=== PATIENT | male | born 1990 | race Caucasian/White ===

== ENCOUNTER → 2018-09-23 | Outpatient (CLI) | payer OTHER ==
--- NOTE | 2018-09-23 15:07 | US ---
EXAMINATION TYPE: US abdomen complete DATE OF EXAM: 09/23/2018 COMPARISON: NONE CLINICAL HISTORY: K76.0 Non alcoholic fatty liver disease. Pt states recent abnormal/elevated labs EXAM MEASUREMENTS: Liver Length: 17.5 cm Gallbladder Wall: 0.2 cm CBD: 0.4 cm Spleen: 11.2 cm Right Kidney: 11.4 x 5.0 x 4.7 cm Left Kidney: 10.9 x 5.7 x 5.8 cm Pancreas: wnl, tail obscured by overlying bowel gas Liver: Heterogeneous, probable fatty sparing near GB Gallbladder: wnl Evidence for sonographic Willams's sign: No CBD: wnl Spleen: Appeared heterogeneous Right Kidney: wnl Left Kidney: wnl Upper IVC: wnl Abd Aorta: wnl IMPRESSION: 1. Mild fatty infiltration liver with mild hepatomegaly
== END | disposition home or self-care (01) ==
LOC: RADUSWWP 07:23
PROVIDERS: ATTEND Internal Medicine
DX: K76.0 Fatty (change of) liver, not elsewhere classified (principal)
CPT/HCPCS: 76700

== ENCOUNTER 2019-10-01 16:34 | Emergency (ER) | payer OTHER ==
[2019-10-01] MEDS ORDERED: KETOROLAC 30 MG/ML 1 ML VIAL IVP STA (17:36)
[2019-10-01 17:55] LABS: Basophils # (A) 0.1 k/uL (0-0.2); Basophils % (A) 2 %; Eosinophils # (A) 0.2 k/uL (0-0.7); Eosinophils % (A) 3 %; HCT 44.6 % (39.0-53.0); Lymphocytes # (A) 1.6 k/uL (1.0-4.8); Lymphocytes % (A) 19 %; MCH 29.5 pg (25.0-35.0); MCHC 33.6 g/dL (31.0-37.0); MCV 87.8 fL (80.0-100.0); Mean Platelet Volume 7.3; Monocytes # (A) 0.5 k/uL (0-1.0); Monocytes % (A) 6 %; Neutrophils % (A) 70 %; Platelet Count 391 k/uL (150-450); RBC 5.09 m/uL (4.30-5.90); RDW 12.6 % (11.5-15.5); WBC 8.6 k/uL (3.8-10.6)
--- NOTE | 2019-10-01 18:01 | ED ---
Chest Pain HPI - General Chief Complaint: Chest Pain Stated Complaint: Chest pain Time Seen by Provider: 10/01/19 16:50 Source: patient Mode of arrival: ambulatory Limitations: no limitations - History of Present Illness Initial Comments: The patient is a 28 year old male with past history of hypertension and hyperlipidemia who presents emergency room with reported chest pain. He states the pain started earlier this morning. It is described as a sharp shooting sensation on the left side of his chest which is worse with inspiration. He denies a history of DVT or PE. No family history of blood clotting disorder. No recent travel. Does admit to left calf pain which hurt 3 days ago and then improved. Denies any calf swelling. No fevers or chills. Denies a cough or hemoptysis. Denies a family history of early cardiac disease. No associated nausea, vomiting or diaphoresis. No ripping or tearing sensation to his back. No history of IV drug use. He denies any unilateral numbness or weakness. There are no other alleviating, precipitating or modifying factors - Related Data Allergies Allergy/AdvReac Type Severity Reaction Status Date / Time No Known Allergies Allergy Verified 10/01/19 16:54 Review of Systems ROS Statement: Those systems with pertinent positive or pertinent negative responses have been documented in the HPI. ROS Other: All systems not noted in ROS Statement are negative. EKG Findings - EKG Comments: EKG Findings:: EKG demonstrates a normal sinus rhythm with ventricular rate 73. SD interval 192. QRS 90. QTC of 31. There are no acute ST segment elevations or depressions concerning for ischemic changes. Q waves in lead 3. Past Medical History Past Medical History: Hypertension History of Any Multi-Drug Resistant Organisms: None Reported Additional Past Surgical History / Comment(s): nasal surgery Past Psychological History: No Psychological Hx Reported Smoking Status: Never smoker Past Alcohol Use History: Occasional Past Drug Use History: None Reported General Exam Limitations: no limitations General appearance: alert, in no apparent distress Head exam: Present: atraumatic, normocephalic, normal inspection Eye exam: Present: normal appearance, PERRL, EOMI. Absent: scleral icterus, conjunctival injection, periorbital swelling ENT exam: Present: normal exam, mucous membranes moist Neck exam: Present: normal inspection. Absent: tenderness, meningismus, lymphadenopathy Respiratory exam: Present: normal lung sounds bilaterally. Absent: respiratory distress, wheezes, rales, rhonchi, stridor Cardiovascular Exam: Present: regular rate, normal rhythm, normal heart sounds. Absent: systolic murmur, diastolic murmur, rubs, gallop, clicks GI/Abdominal exam: Present: soft, normal bowel sounds. Absent: distended, tenderness, guarding, rebound, rigid Extremities exam: Present: normal inspection, full ROM, normal capillary refill. Absent: tenderness, pedal edema, joint swelling, calf tenderness Back exam: Present: normal inspection Neurological exam: Present: alert, oriented X3, CN II-XII intact Psychiatric exam: Present: normal affect, normal mood Skin exam: Present: warm, dry, intact, normal color. Absent: rash Course Vital Signs 10/01/19 10/01/19 10/01/19 16:52 18:56 20:28 Temperature 98.1 F 98.2 F Pulse Rate 90 78 81 Respiratory 18 16 18 Rate Blood Pressure 151/91 129/76 139/88 O2 Sat by Pulse 99 96 97 Oximetry Chest Pain MDM - MDM Upon arrival the patient was placed into room 11. A thorough history and physic al exam was performed. Peripheral IV was established. The patient was given 15 g of Toradol IV. A 12-lead EKG was performed. Laboratory studies were conducted which were essentially unremarkable. D-dimer is 0.25 troponin was less than 0.015. C-reactive protein less than 5 and sed rate is 6. Chest x-ray demonstrates no acute intrathoracic process. I also performed a venous Doppler of the patient's left lower extremity which demonstrates no DVT. I did perform a bedside cardiac ultrasound on the patient which demonstrated no pericardial effusion or cardiac tamponade. I did discuss the diagnosis, differential and treatment options. At this time. The patient will be discharged home. He is instructed to take Motrin 600 every 8 hours for possible pleurisy. He needs to follow up with primary care doctor in 2-4 days. I did recommend an echo monitoring. The patient has any new or worsening symptoms he should return to the emergency room. The patient was discharged in stable condition Disposition Clinical Impression: Chest pain Disposition: HOME SELF-CARE Condition: Stable Instructions (If sedation given, give patient instructions): Chest Pain (ED) Additional Instructions: Please follow up with the primary care doctor in 2-4 days. I do recommend a Holter monitor and echo of her heart. Return to the emergency room for any new or worsening symptoms Is patient prescribed a controlled substance at d/c from ED?: No Referrals: Anupam Thorne MD [Primary Care Provider] - 1-2 days Francisco Paredes MD [STAFF PHYSICIAN] - 1-2 days Time of Disposition: 20:04
[2019-10-01 18:09] LABS: ALT 54 U/L (4-49); AST 45 U/L (17-59); African American GFR (CKD) >90 (>60 ml/min/1.73 sqM); Albumin 4.6 g/dL (3.5-5.0); Alkaline Phosphatase 36 U/L (38-126); Anion Gap 9 mmol/L; Blood Urea Nitrogen 15 mg/dL (9-20); Calcium 9.5 mg/dL (8.4-10.2); Carbon Dioxide 24 mmol/L (22-30); Chloride 108 mmol/L (98-107); Glucose 115 mg/dL (74-99); Non-African American GFR(CKD) >90 (>60 ml/min/1.73 sqM); Potassium 4.5 mmol/L (3.5-5.1); Sodium 141 mmol/L (137-145); Total Bilirubin 0.5 mg/dL (0.2-1.3); Total Protein 7.9 g/dL (6.3-8.2)
[2019-10-01 18:11] LABS: C Reactive Protein <5.0 mg/L (<10.0)
--- NOTE | 2019-10-01 18:16 | XR ---
EXAMINATION TYPE: XR chest 2V DATE OF EXAM: 10/01/2019 COMPARISON: NONE HISTORY: Chest pain TECHNIQUE: 2 views FINDINGS: Heart and mediastinum are normal. Lungs are clear. Diaphragm is normal. Bony thorax appears normal. IMPRESSION: Normal chest.
[2019-10-01 18:23] LABS: D-Dimer 0.25 mg/L FEU (<0.60); Partial Thromboplastin Time 22.1 sec (22.0-30.0); Prothrombin Time 10.1 sec (9.0-12.0)
--- NOTE | 2019-10-01 19:00 | US ---
EXAMINATION TYPE: US venous doppler duplex LE LT DATE OF EXAM: 10/01/2019 6:51 PM COMPARISON: NONE CLINICAL HISTORY: pain. Chest pain SIDE PERFORMED: Left TECHNIQUE: The lower extremity deep venous system is examined utilizing real time linear array sonog rain with graded compression, doppler sonography and color-flow sonography. VESSELS IMAGED: External Iliac Vein (EIV) Common Femoral Vein Deep Femoral Vein Greater Saphenous Vein * Femoral Vein Popliteal Vein Small Saphenous Vein * Proximal Calf Veins (* superficial vessels Left Leg: Negative for DVT IMPRESSION: Normal exam. No evidence of deep venous thrombosis in the left leg.
[2019-10-01 20:30] VITALS: BP 139/88; PULSE 81; RESP 18; TEMP 98.2
== END 2019-10-01 20:30 | disposition home or self-care (01) ==
LOC: EC 16:34
DX: R07.1 Chest pain on breathing (principal); M79.662 Pain in left lower leg
CPT/HCPCS: 99284; 96374; 36415; 93005; 85379; 80053; 85652; 83690; 83735; 84484; 85025; 85610; 85730; 86140; 71046; 93971; J1885

== ENCOUNTER 2022-12-19 01:29 | Emergency (ER) | payer BC, OTHER ==
[2022-12-19 01:33] VITALS: TEMP 97.6
[2022-12-19 01:56] VITALS: BP 145/92; PULSE 55; RESP 16
[2022-12-19 02:09] LABS: Basophils % (A) 0 %; Eosinophils # (A) 0.3 k/uL (0-0.7); Eosinophils % (A) 4 %; HCT 41.6 % (39.0-53.0); HGB 15.3 gm/dL (13.0-17.5); Lymphocytes # (A) 2.4 k/uL (1.0-4.8); Lymphocytes % (A) 36 %; MCHC 36.8 g/dL (31.0-37.0); MCV 84.3 fL (80.0-100.0); Mean Platelet Volume 7.3; Monocytes # (A) 0.5 k/uL (0-1.0); Monocytes % (A) 7 %; Neutrophils # (A) 3.1 k/uL (1.3-7.7); Neutrophils % (A) 48 %; Platelet Count 268 k/uL (150-450); RBC 4.94 m/uL (4.30-5.90); RDW 12.8 % (11.5-15.5); WBC 6.5 k/uL (3.8-10.6)
[2022-12-19 02:33] LABS: INR 0.9 (<1.2); Partial Thromboplastin Time 23.5 sec (22.0-30.0)
[2022-12-19 02:53] LABS: ALT 53 U/L (4-49); AST 34 U/L (17-59); African American GFR (CKD) >90 (>60 ml/min/1.73 sqM); Albumin 4.4 g/dL (3.5-5.0); Alkaline Phosphatase 64 U/L (38-126); Anion Gap 9 mmol/L; Blood Urea Nitrogen 15 mg/dL (9-20); Carbon Dioxide 27 mmol/L (22-30); Chloride 103 mmol/L (98-107); Glucose 124 mg/dL (74-99); Non-African American GFR(CKD) >90 (>60 ml/min/1.73 sqM); Sodium 139 mmol/L (137-145); Total Bilirubin 0.4 mg/dL (0.2-1.3); Total Protein 7.6 g/dL (6.3-8.2)
[2022-12-19] MEDS ORDERED: KETOROLAC 15 MG/ML 1 ML VIAL IVP STA (03:56)
--- NOTE | 2022-12-19 04:04 | ED ---
General Adult HPI - General Chief complaint: Chest Pain Stated complaint: Chest Pain Time Seen by Provider: 12/19/22 02:23 Source: patient Mode of arrival: ambulatory Limitations: no limitations - History of Present Illness Initial comments: This is a 32-year-old male with a past medical history including hypertension presents emergency department for central chest pain. The patient stated that he was in bed when he rolled over and noted a sharp pain in the sternal region. The patient stated that this pain was present and did resolve once he did lay back however continued to think about the pain and was concerned about the chest pain speaking to the emergency department. The patient did state that the pain is worse with palpation and worse with movement. The patient denied any shortness of breath or difficulty in breathing. The patient denied any other acute pain or complaints. The patient did state that he was throwing batting practice the day before which she has done multiple times in the past but stated that he could have pulled a muscle. The patient denied any other acute pain or complaints at this time. - Related Data Allergies Allergy/AdvReac Type Severity Reaction Status Date / Time No Known Allergies Allergy Verified 12/19/22 01:32 Review of Systems ROS Statement: Those systems with pertinent positive or pertinent negative responses have been documented in the HPI. ROS Other: All systems not noted in ROS Statement are negative. Past Medical History Past Medical History: Hyperlipidemia, Hypertension History of Any Multi-Drug Resistant Organisms: None Reported Additional Past Surgical History / Comment(s): nasal surgery Past Psychological History: No Psychological Hx Reported Smoking Status: Never smoker Past Alcohol Use History: Occasional Past Drug Use History: None Reported General Exam Limitations: no limitations General appearance: alert, in no apparent distress, obese Head exam: Present: atraumatic, normocephalic, normal inspection Eye exam: Present: normal appearance, PERRL Pupils: Present: normal accommodation ENT exam: Present: normal exam, normal oropharynx, mucous membranes moist Neck exam: Present: normal inspection, full ROM Respiratory exam: Present: normal lung sounds bilaterally, chest wall tenderness (Reproducibility of pain to palpation over the sternal region) Cardiovascular Exam: Present: regular rate, normal rhythm, normal heart sounds GI/Abdominal exam: Present: soft, normal bowel sounds Extremities exam: Present: normal inspection, full ROM Back exam: Present: normal inspection, full ROM Neurological exam: Present: alert, oriented X3, CN II-XII intact Psychiatric exam: Present: normal affect, normal mood Skin exam: Present: warm, dry Course Vital Signs 12/19/22 12/19/22 01:30 01:55 Temperature 97.6 F Pulse Rate 64 55 L Respiratory 18 16 Rate Blood Pressure 179/110 145/92 O2 Sat by Pulse 100 99 Oximetry EKG Findings - EKG Comments: EKG Findings:: In EKG was obtained was interpreted by myself showing a rate of 57, DE interval 186, QRS duration of 112 and QTC of 388. This EKG showed a sinus bradycardia without any ST segment elevation or depression noted. Medical Decision Making - Medical Decision Making Was pt. sent in by a medical professional or institution (, PA, TRACER POWDER BLENDER, urgent care, hospital, or alf...) When possible be specific @ -No Did you speak to anyone other than the patient for history (EMS, parent, family, police, friend...)? What history was obtained from this source @ -No Did you review nursing and triage notes (agree or disagree)? Why? @ -I reviewed and agree with nursing and triage notes Were old charts reviewed (outside hosp., previous admission, EMS record, old EKG, old radiological studies, urgent care reports/EKG's, alf records)? Report findings @ -No old charts were reviewed Differential Diagnosis (chest pain, altered mental status, abdominal pain women, abdominal pain men, vaginal bleeding, weakness, fever, dyspnea, syncope, headache, dizziness, GI bleed, back pain, seizure, CVA, palpatations, mental health)? @ -Costochondritis, ACS, pneumonia EKG interpreted by me (3pts min.). @ -As above X-rays interpreted by me (1pt min.). @ -CXR was performed and was interpreted by myself showing no acute process. CT interpreted by me (1pt min.). @ -None done U/S interpreted by me (1pt. min.). @ -None done What testing was considered but not performed or refused? (CT, X-rays, U/S, labs)? Why? @ -None What meds were considered but not given or refused? Why? @ -None Did you discuss the management of the patient with other professionals (professionals i.e. , PA, TRACER POWDER BLENDER, lab, RT, psych nurse, social science teacher, central office equipment installer, teacher, adult parole officer, spring encaser)? Give summary @ -No Was smoking cessation discussed for >3mins.? @ -No Was critical care preformed (if so, how long)? @ -No Were there social determinants of health that impacted care today? How? (Homelessness, low income, unemployed, alcoholism, drug addiction, transportation, low edu. Level, literacy, decrease access to med. care, fpc, rehab)? @ -No Was there de-escalation of care discussed even if they declined (Discuss DNR or withdrawal of care, Hospice)? DNR status @ -No What co-morbidities impacted this encounter? (DM, HTN, Smoking, COPD, CAD, Cancer, CVA, ARF, Chemo, Hep., AIDS, mental health diagnosis, sleep apnea, morbid obesity)? @ -Hypertension Was patient admitted / discharged? Hospital course, mention meds given and route, prescriptions, significant lab abnormalities, going to OR and other pertinent info. @ -The patient was seen and evaluated emergency department. Physical exam, the patient was resting in bed without any acute distress. Vital signs admission were stable. Workup was negative and the patient had reproducibility of pain on palpation of the sternal region likely indicating costochondritis. The patient did receive a dose of Toradol and on reevaluation had improvement of his pain. The patient was advised to continue take anti-inflammatory medications and to report back to the emergency department if his pain became acutely worse. The patient was agreeable to this and all his questions were answered. The patient was discharged home in stable condition. Undiagnosed new problem with uncertain prognosis? @ -No Drug Therapy requiring intensive monitoring for toxicity (Heparin, Nitro, Insulin, Cardizem)? @ -No Were any procedures done? @ -No Diagnosis/symptom? @ -Costochondritis Acute, or Chronic, or Acute on Chronic? @ -Acute Uncomplicated (without systemic symptoms) or Complicated (systemic symptoms)? @ -Uncomplicated Side effects of treatment? @ -No Exacerbation, Progression, or Severe Exacerbation? @ -No Poses a threat to life or bodily function? How? (Chest pain, [place], [place], pneumonia, PE, COPD, DKA, ARF, appy, cholecystitis, CVA, Diverticulitis, Homicidal, Suicidal, threat to staff... and all critical care pts) @ -No - Lab Data Result diagrams: 12/19/22 02:00 12/19/22 02:00 Lab Results 12/19/22 12/19/22 12/19/22 Range/Units 01:59 02:00 02:00 WBC 6.5 (3.8-10.6) k/uL RBC 4.94 (4.30-5.90) m/uL Hgb 15.3 (13.0-17.5) gm/dL Hct 41.6 (39.0-53.0) % MCV 84.3 (80.0-100.0) fL MCH 31.0 (25.0-35.0) pg MCHC 36.8 (31.0-37.0) g/dL RDW 12.8 (11.5-15.5) % Plt Count 268 (150-450) k/uL MPV 7.3 Neutrophils % 48 % Lymphocytes % 36 % Monocytes % 7 % Eosinophils % 4 % Basophils % 0 % Neutrophils # 3.1 (1.3-7.7) k/uL Lymphocytes # 2.4 (1.0-4.8) k/uL Monocytes # 0.5 (0-1.0) k/uL Eosinophils # 0.3 (0-0.7) k/uL Basophils # 0.0 (0-0.2) k/uL PT 10.0 (9.0-12.0) sec INR 0.9 (<1.2) APTT 23.5 (22.0-30.0) sec Sodium (137-145) mmol/L Potassium (3.5-5.1) mmol/L Chloride (98-107) mmol/L Carbon Dioxide (22-30) mmol/L Anion Gap mmol/L BUN (9-20) mg/dL Creatinine (0.66-1.25) mg/dL Est GFR (CKD-EPI)AfAm (>60 ml/min/1.73 sqM) Est GFR (CKD-EPI)NonAf (>60 ml/min/1.73 sqM) Glucose (74-99) mg/dL Calcium (8.4-10.2) mg/dL Total Bilirubin (0.2-1.3) mg/dL AST (17-59) U/L ALT (4-49) U/L Alkaline Phosphatase (38-126) U/L Troponin I <0.012 (0.000-0.034) ng/mL Total Protein (6.3-8.2) g/dL Albumin (3.5-5.0) g/dL 12/19/22 Range/Units 02:00 WBC (3.8-10.6) k/uL RBC (4.30-5.90) m/uL Hgb (13.0-17.5) gm/dL Hct (39.0-53.0) % MCV (80.0-100.0) fL MCH (25.0-35.0) pg MCHC (31.0-37.0) g/dL RDW (11.5-15.5) % Plt Count (150-450) k/uL MPV Neutrophils % % Lymphocytes % % Monocytes % % Eosinophils % % Basophils % % Neutrophils # (1.3-7.7) k/uL Lymphocytes # (1.0-4.8) k/uL Monocytes # (0-1.0) k/uL Eosinophils # (0-0.7) k/uL Basophils # (0-0.2) k/uL PT (9.0-12.0) sec INR (<1.2) APTT (22.0-30.0) sec Sodium 139 (137-145) mmol/L Potassium 4.0 (3.5-5.1) mmol/L Chloride 103 (98-107) mmol/L Carbon Dioxide 27 (22-30) mmol/L Anion Gap 9 mmol/L BUN 15 (9-20) mg/dL Creatinine 0.95 (0.66-1.25) mg/dL Est GFR (CKD-EPI)AfAm >90 (>60 ml/min/1.73 sqM) Est GFR (CKD-EPI)NonAf >90 (>60 ml/min/1.73 sqM) Glucose 124 H (74-99) mg/dL Calcium 9.0 (8.4-10.2) mg/dL Total Bilirubin 0.4 (0.2-1.3) mg/dL AST 34 (17-59) U/L ALT 53 H (4-49) U/L Alkaline Phosphatase 64 (38-126) U/L Troponin I (0.000-0.034) ng/mL Total Protein 7.6 (6.3-8.2) g/dL Albumin 4.4 (3.5-5.0) g/dL Disposition Clinical Impression: Costochondritis Disposition: HOME SELF-CARE Condition: Stable Instructions (If sedation given, give patient instructions): Costochondritis (ED) Is patient prescribed a controlled substance at d/c from ED?: No Referrals: Anupam Thorne MD [Primary Care Provider] - 1-2 days Time of Disposition: 03:45
--- NOTE | 2022-12-19 06:19 | XR ---
EXAMINATION TYPE: XR chest 2V DATE OF EXAM: 12/19/2022 2:25 AM COMPARISON: Chest radiographs from 10/01/2019 TECHNIQUE: XR chest 2V Frontal and lateral views of the chest. CLINICAL INDICATION:Male, 32 years old with history of CP; FINDINGS: Lungs/Pleura: There is no evidence of pleural effusion, focal consolidation, or pneumothorax. Pulmonary vascularity: Unremarkable. Heart/mediastinum: Cardiomediastinal silhouette is unremarkable. Musculoskeletal: No acute osseous pathology. IMPRESSION: No acute cardiopulmonary disease/process.
== END 2022-12-19 04:14 | disposition home or self-care (01) ==
LOC: EC 01:29
DX: M94.0 Chondrocostal junction syndrome [Tietze] (principal); I10 Essential (primary) hypertension
CPT/HCPCS: 36415; 93005; 80053; 84484; 85025; 85610; 85730; 71046; 99285; 96374; J1885